=== PATIENT | female | born 1950 | race Caucasian/White ===

== ENCOUNTER 2019-03-28 16:52 | Emergency (ER) | payer OTHER, SELFPAY ==
[~2019-03-28] VITALS: Ht 157.5 cm; Wt 97.5 kg
[2019-03-28 17:47] LABS: BASOPHILS ABSOLUTE AUTO 0.05 K/mm3 (0.00-0.23); BASOPHILS PERCENT AUTO 1 % (0-2); EOSINOPHILS ABSOLUTE AUTO 0.18 K/mm3 (0.00-0.68); EOSINOPHILS PERCENT AUTO 2 % (0-6); Hematocrit 42.6 % (33.0-51.0); Hemoglobin 13.8 g/dL (11.5-16.0); IMMATURE GRAN ABSOLUTE AUTO 0.03 K/mm3 (0.00-0.10); IMMATURE GRAN PERCENT AUTO 0 % (0-1); LYMPHOCYTES ABSOLUTE AUTO 2.65 K/mm3 (0.84-5.20); LYMPHOCYTES PERCENT AUTO 30 % (21-46); MONOCYTES ABSOLUTE AUTO 0.49 K/mm3 (0.16-1.47); MONOCYTES PERCENT AUTO 6 % (4-13); Mean Corpuscular HGB 29.2 pg (26.0-34.0); Mean Corpuscular HGB Conc 32.4 g/dL (31.5-36.5); Mean Corpuscular Volume 90 fL (80-100); Mean Platelet Volume 10.4 fL (9.1-12.4); NEUTROPHILS ABSOLUTE AUTO 5.53 K/mm3 (1.96-9.15); NEUTROPHILS PERCENT AUTO 62 % (41-73); Platelet Count 340 K/mm3 (150-400); RDW Coefficient Variation 12.1 % (11.7-14.2); RDW Standard Deviation 40.5 fL (35.1-46.3); Red Blood Cell Count 4.72 M/mm3 (3.80-5.20); White Blood Cell Count 8.93 K/mm3 (4.00-11.30)
[2019-03-28 18:15] LABS: Alanine Aminotransfer (ALT/SGP 18 U/L (12-78); Albumin, Blood 3.6 g/dL (3.4-5.0); Albumin/Globulin Ratio 0.9 (0.8-1.8); Alk Phos 80 U/L (50-136); Anion Gap 5 mmol/L (6-16); Aspartate Aminotrans (AST/SGOT 25 U/L (12-37); Bilirubin, Total 0.7 mg/dL (0.1-1.0); Blood Urea Nitrogen 16 mg/dL (8-24); Bun/Creatinine Ratio 14.8 (12.0-20.0); CO2, Blood 27 mmol/L (21-32); Calcium, Blood 8.8 mg/dL (8.5-10.1); Chloride, Blood 104 mmol/L (98-108); Creatinine, Blood 1.08 mg/dL (0.40-1.00); Globulin, Blood 3.9 g/dL (2.2-4.0); Glomerular Filtration Rate 54 (60-); Glucose, Blood 158 mg/dL (70-99); Potassium, Blood 3.9 mmol/L (3.5-5.5); Sodium, Blood 136 mmol/L (136-145); Total Protein, Blood 7.5 g/dL (6.4-8.2)
[2019-03-28 18:36] LABS: Troponin I <0.015 ng/mL (0.000-0.040)
== END 2019-03-28 19:07 | disposition home or self-care (01) ==
LOC: ER 16:52
PROVIDERS: Emergency Medicine
DX: J32.9 Chronic sinusitis, unspecified (principal); B97.89 Other viral agents as the cause of diseases classified elsewhere; J40 Bronchitis, not specified as acute or chronic; Z87.01 Personal history of pneumonia (recurrent); Z88.0 Allergy status to penicillin; Z88.8 Allergy status to other drugs, medicaments and biological substances
CPT/HCPCS: 36415; 71046; 80053; 84484; 85025; 93005; 93010; 99284-25

== ENCOUNTER 2019-06-03 20:10 | Emergency (ER) | payer OTHER ==
[~2019-06-03] VITALS: Ht 160 cm; Wt 97.5 kg
[2019-06-03] MEDS ORDERED: ERYT1OIN BOTHEYES (21:05)
== END 2019-06-03 21:17 | disposition home or self-care (01) ==
LOC: ER 20:10
DX: H10.023 Other mucopurulent conjunctivitis, bilateral (principal); I48.91 Unspecified atrial fibrillation; Z88.0 Allergy status to penicillin; Z88.7 Allergy status to serum and vaccine
CPT/HCPCS: 99282

== ENCOUNTER 2020-04-20 05:37 | Day surgery (SDC) | payer OTHER ==
[~2020-04-20 05:37] MED LIST: ASPIR 8181 M1 PO; ERYT1OIN BOTHEYES; Isosorbide Dini30 MG PO; METO25ER PO; NITR.4SL SL
--- NOTE | 2020-04-20 10:11 | NUR ---
10 CC OF AIR REMOVED OUT OF NOW DEFLATED RIGHT TR BAND OVER 10 MIN. RIGHT RADIAL SITE SOFT NON-TENDER WITH NO HEMATOMA, NO PULSATILE BLEEDING. DISCHARGE INSTRUCTIONS REVIEWED ALL QUESTIONS ANNSWERED. PT AMBULATED TO BR TO VOID.
--- NOTE | 2020-04-20 10:24 | NUR ---
NO CHANGES TO DEFLATED RIGHT TR BAND SITE.
--- NOTE | 2020-04-20 10:35 | NUR ---
NO CHANGES TO DEFLATED RIGHT TR BAND SITE.
--- NOTE | 2020-04-20 11:08 | NUR ---
DEFLATED RIGHT TR BAND REMOVED AND POLYMEM PLACED OVER RIGHT RADIAL SITE WITH WRIST BOARD IN PLACE. RIGHT RAIDAL SITE SOFT NON-TENDER WITH NO HEMATOMA, NO PULSATILE BLEEDING. 20 G IV DISCONTINUED FROM LEFT HAND WITH INTACT CANNULA. PT ESCORTED OUT VIA WHEELCHAIR ESCORT.
== END 2020-04-20 11:14 | disposition home or self-care (01) ==
LOC: MHTC 05:37
PROC: B2111ZZ Fluoroscopy of Multiple Coronary Arteries using Low Osmolar Contrast (ICD-10-PCS; principal; 2020-04-20)
PROC: B2151ZZ Fluoroscopy of Left Heart using Low Osmolar Contrast (ICD-10-PCS; principal; 2020-04-20)
PROC: 4A023N7 Measurement of Cardiac Sampling and Pressure, Left Heart, Percutaneous Approach (ICD-10-PCS; principal; 2020-04-20)
DX: I20.8 Other forms of angina pectoris (principal); I45.10 Unspecified right bundle-branch block; I44.30 Unspecified atrioventricular block; I48.0 Paroxysmal atrial fibrillation; I10 Essential (primary) hypertension; I49.5 Sick sinus syndrome; E78.5 Hyperlipidemia, unspecified; E11.9 Type 2 diabetes mellitus without complications; E03.9 Hypothyroidism, unspecified; K21.9 Gastro-esophageal reflux disease without esophagitis; Z95.0 Presence of cardiac pacemaker; Z79.82 Long term (current) use of aspirin; Z79.899 Other long term (current) drug therapy; Z88.0 Allergy status to penicillin; Z88.8 Allergy status to other drugs, medicaments and biological substances
CPT/HCPCS: 76937; 85347; 93458; 99152; C1769; C1894; J1644; J2250; J3010; J7030; J7050; Q9967

== ENCOUNTER 2020-04-23 13:02 | Observation (INO) | payer OTHER ==
[~2020-04-23] VITALS: Ht 160 cm; Wt 93.1 kg
[2020-04-23 13:49] LABS: BASOPHILS ABSOLUTE AUTO 0.05 K/mm3 (0.00-0.23); BASOPHILS PERCENT AUTO 1 % (0-2); EOSINOPHILS ABSOLUTE AUTO 0.11 K/mm3 (0.00-0.68); EOSINOPHILS PERCENT AUTO 1 % (0-6); Hematocrit 43.9 % (33.0-51.0); Hemoglobin 13.7 g/dL (11.5-16.0); IMMATURE GRAN ABSOLUTE AUTO 0.02 K/mm3 (0.00-0.10); IMMATURE GRAN PERCENT AUTO 0 % (0-1); LYMPHOCYTES ABSOLUTE AUTO 2.18 K/mm3 (0.84-5.20); LYMPHOCYTES PERCENT AUTO 25 % (21-46); MONOCYTES ABSOLUTE AUTO 0.65 K/mm3 (0.16-1.47); MONOCYTES PERCENT AUTO 8 % (4-13); Mean Corpuscular HGB 28.4 pg (26.0-34.0); Mean Corpuscular HGB Conc 31.2 g/dL (31.5-36.5); Mean Corpuscular Volume 91 fL (80-100); Mean Platelet Volume 9.9 fL (9.1-12.4); NEUTROPHILS ABSOLUTE AUTO 5.68 K/mm3 (1.96-9.15); NEUTROPHILS PERCENT AUTO 65 % (41-73); Platelet Count 283 K/mm3 (150-400); RDW Coefficient Variation 12.8 % (11.7-14.2); RDW Standard Deviation 42.6 fL (35.1-46.3); Red Blood Cell Count 4.83 M/mm3 (3.80-5.20); White Blood Cell Count 8.69 K/mm3 (4.00-11.30)
[2020-04-23 14:09] LABS: Creatine Kinase MB 1.2 ng/mL (0.0-3.6)
[2020-04-23 14:10] LABS: Alanine Aminotransfer (ALT/SGP 19 U/L (12-78); Albumin, Blood 3.8 g/dL (3.4-5.0); Alk Phos 78 U/L (50-136); Anion Gap 6 mmol/L (6-16); Aspartate Aminotrans (AST/SGOT 15 U/L (12-37); Bilirubin, Total 0.6 mg/dL (0.1-1.0); Blood Urea Nitrogen 17 mg/dL (8-24); Bun/Creatinine Ratio 18.6 (12.0-20.0); CO2, Blood 24 mmol/L (21-32); Calcium, Blood 8.8 mg/dL (8.5-10.1); Chloride, Blood 108 mmol/L (98-108); Creatinine, Blood 0.92 mg/dL (0.40-1.00); Glomerular Filtration Rate >60 (60-); Glucose, Blood 84 mg/dL (70-99); Potassium, Blood 4.2 mmol/L (3.5-5.5); Sodium, Blood 138 mmol/L (136-145); Total Protein, Blood 7.8 g/dL (6.4-8.2); Troponin I <0.015 ng/mL (0.000-0.040)
[2020-04-24 02:25] LABS: BASOPHILS ABSOLUTE AUTO 0.07 K/mm3 (0.00-0.23); BASOPHILS PERCENT AUTO 1 % (0-2); EOSINOPHILS ABSOLUTE AUTO 0.15 K/mm3 (0.00-0.68); EOSINOPHILS PERCENT AUTO 2 % (0-6); Hematocrit 37.7 % (33.0-51.0); IMMATURE GRAN ABSOLUTE AUTO 0.03 K/mm3 (0.00-0.10); IMMATURE GRAN PERCENT AUTO 0 % (0-1); LYMPHOCYTES ABSOLUTE AUTO 2.35 K/mm3 (0.84-5.20); LYMPHOCYTES PERCENT AUTO 32 % (21-46); MONOCYTES ABSOLUTE AUTO 0.52 K/mm3 (0.16-1.47); MONOCYTES PERCENT AUTO 7 % (4-13); Mean Corpuscular HGB 28.9 pg (26.0-34.0); Mean Corpuscular HGB Conc 31.8 g/dL (31.5-36.5); Mean Corpuscular Volume 91 fL (80-100); Mean Platelet Volume 10.3 fL (9.1-12.4); NEUTROPHILS ABSOLUTE AUTO 4.31 K/mm3 (1.96-9.15); NEUTROPHILS PERCENT AUTO 58 % (41-73); Platelet Count 242 K/mm3 (150-400); RDW Coefficient Variation 12.9 % (11.7-14.2); RDW Standard Deviation 43.2 fL (35.1-46.3); Red Blood Cell Count 4.15 M/mm3 (3.80-5.20); White Blood Cell Count 7.43 K/mm3 (4.00-11.30)
[2020-04-24 02:43] LABS: Alanine Aminotransfer (ALT/SGP 17 U/L (12-78); Albumin/Globulin Ratio 0.9 (0.8-1.8); Alk Phos 64 U/L (50-136); Anion Gap 6 mmol/L (6-16); Aspartate Aminotrans (AST/SGOT 12 U/L (12-37); Bilirubin, Total 0.6 mg/dL (0.1-1.0); Blood Urea Nitrogen 17 mg/dL (8-24); Bun/Creatinine Ratio 19.8 (12.0-20.0); CO2, Blood 24 mmol/L (21-32); Calcium, Blood 8.4 mg/dL (8.5-10.1); Chloride, Blood 110 mmol/L (98-108); Creatinine, Blood 0.86 mg/dL (0.40-1.00); Globulin, Blood 3.4 g/dL (2.2-4.0); Glomerular Filtration Rate >60 (60-); Glucose, Blood 135 mg/dL (70-99); Magnesium, Blood 1.9 mg/dL (1.6-2.4); Potassium, Blood 3.9 mmol/L (3.5-5.5); Sodium, Blood 140 mmol/L (136-145); Total Protein, Blood 6.4 g/dL (6.4-8.2); Troponin I <0.015 ng/mL (0.000-0.040)
--- NOTE | 2020-04-24 05:31 | NUR ---
SHIFT SUMMARY PT ARRIVED TO UNIT FROM ED VIA STRETCHER @ 1957. TRANSFERRED FROM STRETCHER TO BEDSIDE 2 PERSON ASSIST WITH WALKER AND GAIT BELT. UNSTEADY GAIT, PT FELT VERY DIZZY. PT REFUSED IV PLACEMENT. SLEPT WELL T/O NIGHT. MEDICATED FOR PAIN X1 PER AUG, USED KPAD WELL, PT STATES THAT HELPED A LOT. 0500 IMAGING CALLED STATING NEED FOR IV FOR CTA, PT STATES SHE IS NOW OK TO HAVE ONE PLACED. ABDULAZIZ COLON IN PT ROOM CURRENTLY ATTEMPTING IV PLACEMENT. PT HAS NO APPARENT NEEDS OR DISTRESS AT THIS TIME, CALL LIGHT AND PERSONAL ITEMS ARE WITHIN REACH. WILL CONTINUE TO MONITOR UNTIL REPORT GIVEN TO DAY RN.
--- NOTE | 2020-04-24 09:09 | NUR ---
ECHOCARDIOGRAM COMPLETED
[2020-04-24] MEDS ORDERED: ACET325 PO (13:13)
[2020-04-24] MEDS ORDERED: Donnatal E16.2 MG/5 PO (13:15)
[2020-04-24] MEDS ORDERED: TUMS500 MG PO (13:16)
[2020-04-24] MEDS ORDERED: FAMO20 PO (13:16)
[2020-04-24] MEDS ORDERED: HYDR10 PO (13:17)
[2020-04-24] MEDS ORDERED: ONDA4ODT MM (13:18)
--- NOTE | 2020-04-24 14:46 | NUR ---
SHIFT SUMMARY PT WOKE FOR SHIFT REPORT. ADMITTED FOR CP AND DIZZINESS. NO C/O CP AT START OF SHIFT. PT WITH HX OF NECK/BRAIN TUMOR SX. CTA OF NECK COMPLETE PRIOR TO SHIFT REPORT. ECHO DONE EARLY THIS AM. PT LATER C/O BURNING MID EPIGASTRIC AFTER BREAKFAST. TUMS GIVEN. PT REPORTED THEM EFFECTIVE. NO C/O CP. PT DID REPORT A HX OF BURNING DOWN LEFT NECK AND CHEST; POSSIBLY R/T NERVE ISSUES FROM TUMOR. PT UP TO CHAIR AT THIS AM AND LATER ABLE TO WORK WITH PT/OT TODAY WELL. DR ORTEGATRATE IN TO SEE PT; DISCUSSED PLAN OF CARE AND REVIEWED TEST RESULTS. D/C ORDERS LATER PLACED. PT TO F/U WITH DOCTOR IN [place] R/T BRAIN TUMOR. PT ALSO TO F/U WITH PCP AND CARDIOLOGY. PT VERBALIZED UNDERSTANDING. MEDS FAXED TO [facility] IN [place], PER PT REQUEST. PT'S SISTER NOTIFIED OF D/C TO COME AND P/U PT. PT ABLE TO DRESS HERSELF, WHILE SITTING IN CHAIR AT . DECLINED ASSIST. PT PLEASANT AND GRATEFUL FOR CARE. PT THEN ASSISTED OUT TO CAR VIA W/C BY DIRECTOR OF PEDIATRIC REHABILITATION.
== END 2020-04-24 13:47 | disposition home or self-care (01) ==
LOC: ER 13:02 → MEDS 13:03
PROVIDERS: Emergency Medicine; ADMIT Family Medicine
DX: R07.9 Chest pain, unspecified (principal); R42 Dizziness and giddiness; R29.6 Repeated falls; I10 Essential (primary) hypertension; I48.91 Unspecified atrial fibrillation; D44.7 Neoplasm of uncertain behavior of aortic body and other paraganglia; K21.9 Gastro-esophageal reflux disease without esophagitis; E66.9 Obesity, unspecified; Z68.35 Body mass index [BMI] 35.0-35.9, adult; Z23 Encounter for immunization; Z95.0 Presence of cardiac pacemaker; Z95.5 Presence of coronary angioplasty implant and graft; Z88.0 Allergy status to penicillin; Z88.8 Allergy status to other drugs, medicaments and biological substances; Z79.82 Long term (current) use of aspirin; Z79.899 Other long term (current) drug therapy; Z87.01 Personal history of pneumonia (recurrent)
CPT/HCPCS: 36415; 70450; 70498; 71045; 80053; 82550; 82553; 83690; 83735; 83880; 84145; 84443; 84484; 85025; 93005; 93010; 93306; 97112; 97161; 97166; 97535; 99285-25; A9270; J1650; Q2038; Q9967

== ENCOUNTER → 2021-01-18 | Outpatient (CLI) | payer OTHER ==
[~2021-01-18] MED LIST changes: +ACET325 PO; +Donnatal E16.2 MG/5 PO; +FAMO20 PO; +HYDR10 PO; +ONDA4ODT MM; +TUMS500 MG PO
== END | disposition home or self-care (01) ==
LOC: LAB SHORT 12:48
DX: N39.0 Urinary tract infection, site not specified (principal)
CPT/HCPCS: 87086

== ENCOUNTER 2021-11-01 06:15 | Day surgery (SDC) | payer MEDICARE ==
[~2021-11-01] VITALS: Ht 157.5 cm; Wt 92.3 kg
[~2021-11-01 06:15] MED LIST changes: +METO10 PO; +Pepcid 20 mg Ta20 MG PO; +TRAM50 PO
[2021-11-01] MEDS ORDERED: IBUP200 PO (06:38)
--- NOTE | 2021-11-01 07:54 | NUR ---
11/01/21 0754 Pk Beck NO ANTIBIOTICS NEEDED
--- NOTE | 2021-11-01 09:05 | NUR ---
Patient up to Ambulate independently. Gait steady. Discharge instructions reviewed with patient. Patient verbalizes understanding. Copy given to patient to take home. Patient States Post-Procedure ride home has been arranged. Discharged via wheelchair to private car for ride home. INCISION WITH DERMABOND IN PLACE C/D/I PT DENIES PAIN AT THIS TIME PT DCD VIA [employer] FRIEND JIMBO FOR RIDE HOME
== END 2021-11-01 23:49 | disposition home or self-care (01) ==
LOC: ORSCMMR 06:15 → ORD 07:30 → ORSCMMR 23:49
PROVIDERS: Surgery
PROC: 0JB60ZZ Excision of Chest Subcutaneous Tissue and Fascia, Open Approach (ICD-10-PCS; principal; 2021-11-01 07:30)
DX: D17.1 Benign lipomatous neoplasm of skin and subcutaneous tissue of trunk (principal); I48.91 Unspecified atrial fibrillation; F41.9 Anxiety disorder, unspecified; E11.9 Type 2 diabetes mellitus without complications; K21.9 Gastro-esophageal reflux disease without esophagitis; I10 Essential (primary) hypertension; E78.5 Hyperlipidemia, unspecified; E03.9 Hypothyroidism, unspecified; E66.9 Obesity, unspecified; Z68.37 Body mass index [BMI] 37.0-37.9, adult; Z79.82 Long term (current) use of aspirin; Z79.899 Other long term (current) drug therapy
CPT/HCPCS: 82947; 88304; J3010; J7120

== ENCOUNTER → 2021-12-28 | Outpatient (CLI) | payer MEDICARE ==
[~2021-12-28] MED LIST changes: +IBUP200 PO
== END | disposition home or self-care (01) ==
LOC: LAB SHORT 12:54 → LAB 12:54
DX: R05.3 Chronic cough (principal)
CPT/HCPCS: 87081

== ENCOUNTER 2022-01-18 11:06 | Emergency (ER) | payer MEDICARE ==
[~2022-01-18] VITALS: Ht 157.5 cm; Wt 88.5 kg
[2022-01-18 12:22] LABS: BASOPHILS ABSOLUTE AUTO 0.06 K/mm3 (0.00-0.23); BASOPHILS PERCENT AUTO 1 % (0-2); EOSINOPHILS ABSOLUTE AUTO 0.13 K/mm3 (0.00-0.68); EOSINOPHILS PERCENT AUTO 1 % (0-6); Hematocrit 40.8 % (33.0-51.0); Hemoglobin 13.5 g/dL (11.5-16.0); IMMATURE GRAN ABSOLUTE AUTO 0.04 K/mm3 (0.00-0.10); IMMATURE GRAN PERCENT AUTO 0 % (0-1); LYMPHOCYTES ABSOLUTE AUTO 1.85 K/mm3 (0.84-5.20); LYMPHOCYTES PERCENT AUTO 15 % (21-46); MONOCYTES ABSOLUTE AUTO 1.11 K/mm3 (0.16-1.47); MONOCYTES PERCENT AUTO 9 % (4-13); Mean Corpuscular HGB 29.7 pg (26.0-34.0); Mean Corpuscular HGB Conc 33.1 g/dL (31.5-36.5); Mean Corpuscular Volume 90 fL (80-100); Mean Platelet Volume 10.2 fL (9.1-12.4); NEUTROPHILS ABSOLUTE AUTO 8.84 K/mm3 (1.96-9.15); NEUTROPHILS PERCENT AUTO 74 % (41-73); Platelet Count 351 K/mm3 (150-400); RDW Coefficient Variation 13.2 % (11.7-14.2); RDW Standard Deviation 43.5 fL (35.1-46.3); Red Blood Cell Count 4.54 M/mm3 (3.80-5.20); White Blood Cell Count 12.03 K/mm3 (4.00-11.30)
[2022-01-18 12:45] LABS: Albumin, Blood 3.4 g/dL (3.4-5.0); Albumin/Globulin Ratio 0.8 (0.8-1.8); Bun/Creatinine Ratio 16.4 (12.0-20.0); Calcium, Blood 8.7 mg/dL (8.5-10.1); Creatinine, Blood 0.92 mg/dL (0.40-1.00); Potassium, Blood 4.2 mmol/L (3.5-5.5); Total Protein, Blood 7.4 g/dL (6.4-8.2)
[2022-01-18 13:08] LABS: Influenza A, PCR NEGATIVE (NEGATIVE); Influenza B, PCR NEGATIVE (NEGATIVE); Resp Syncytial Virus, PCR NEGATIVE (NEGATIVE); SARS-Cov-2 (COVID-19) PCR, MMC NEGATIVE (NEGATIVE)
[2022-01-18] MEDS ORDERED: ALBU90OI INH (14:13)
== END 2022-01-18 14:25 | disposition home or self-care (01) ==
LOC: ER 11:06
PROVIDERS: Emergency Medicine; Physician Assistant
DX: J20.8 Acute bronchitis due to other specified organisms (principal); Z20.822 Contact with and (suspected) exposure to COVID-19; Z79.899 Other long term (current) drug therapy; Z79.82 Long term (current) use of aspirin
CPT/HCPCS: 0241U; 36415; 71045; 80053; 83880; 84484; 85025; 93005; 93010; 94640; 94664

== ENCOUNTER 2023-07-29 09:34 | Emergency (ER) | payer MEDICARE, OTHER ==
[~2023-07-29] VITALS: Ht 157.5 cm; Wt 107.0 kg
[~2023-07-29 09:34] MED LIST changes: +ALBU90OI INH
[2023-07-29] MEDS ORDERED: EUTHYROX50 MC1 PO (09:46)
[2023-07-29] MEDS ORDERED: OXYB5 PO (09:46)
[2023-07-29] MEDS ORDERED: NEURONTIN300 MG PO (09:47)
[2023-07-29] MEDS ORDERED: TRAM50 PO (09:47)
[2023-07-29] MEDS ORDERED: PRAV20 PO (09:47)
[2023-07-29] MEDS ORDERED: OXYC5 PO (10:59)
[2023-07-29 11:40] VITALS: BP 135/76
== END 2023-07-29 11:41 | disposition home or self-care (01) ==
LOC: ER 09:34
DX: M54.16 Radiculopathy, lumbar region (principal); Z88.0 Allergy status to penicillin; Z88.8 Allergy status to other drugs, medicaments and biological substances; Z79.899 Other long term (current) drug therapy; Z79.890 Hormone replacement therapy
CPT/HCPCS: 99283; A9270

== ENCOUNTER → 2024-07-16 | Outpatient (CLI) | payer OTHER ==
[~2024-07-16] MED LIST changes: +ALLEGRA ALLERGY60 MG PO; +CEPH500 PO; +ELIQUIS5 M2 PO; +EUTHYROX50 MC1 PO; +LOPE2C PO; +NEURONTIN300 MG PO; +OXYB5 PO; +OXYC5 PO; +PRAV20 PO
[2024-07-16 11:45] LABS: BASOPHILS ABSOLUTE AUTO 0.04 K/mm3 (0.00-0.23); BASOPHILS PERCENT AUTO 1 % (0-2); EOSINOPHILS ABSOLUTE AUTO 0.07 K/mm3 (0.00-0.68); EOSINOPHILS PERCENT AUTO 1 % (0-6); Hematocrit 41.8 % (33.0-51.0); Hemoglobin 13.4 g/dL (11.5-16.0); IMMATURE GRAN ABSOLUTE AUTO 0.03 K/mm3 (0.00-0.10); IMMATURE GRAN PERCENT AUTO 0 % (0-1); LYMPHOCYTES PERCENT AUTO 25 % (21-46); MONOCYTES ABSOLUTE AUTO 0.52 K/mm3 (0.16-1.47); MONOCYTES PERCENT AUTO 8 % (4-13); Mean Corpuscular HGB 30.2 pg (26.0-34.0); Mean Corpuscular HGB Conc 32.1 g/dL (31.5-36.5); Mean Corpuscular Volume 94 fL (80-100); Mean Platelet Volume 9.8 fL (9.1-12.4); NEUTROPHILS ABSOLUTE AUTO 4.39 K/mm3 (1.96-9.15); NEUTROPHILS PERCENT AUTO 65 % (41-73); Platelet Count 272 K/mm3 (150-400); RDW Coefficient Variation 12.9 % (11.7-14.2); RDW Standard Deviation 44.3 fL (35.1-46.3); Red Blood Cell Count 4.43 M/mm3 (3.80-5.20); White Blood Cell Count 6.75 K/mm3 (4.00-11.30)
[2024-07-16 12:13] LABS: Albumin, Blood 3.6 g/dL (3.4-5.0); Albumin/Globulin Ratio 0.9 (0.8-1.8); Bilirubin, Total 0.6 mg/dL (0.1-1.0); Bun/Creatinine Ratio 10.4 (12.0-20.0); Calcium, Blood 9.1 mg/dL (8.5-10.1); Creatinine, Blood 1.15 mg/dL (0.40-1.00); Potassium, Blood 4.7 mmol/L (3.5-5.5); Total Protein, Blood 7.6 g/dL (6.4-8.2)
== END | disposition home or self-care (01) ==
LOC: LAB 11:40 → LAB SHORT 11:40
PROVIDERS: Emergency Medicine
DX: R07.9 Chest pain, unspecified (principal)
CPT/HCPCS: 80053; 83880; 84484; 85025

== ENCOUNTER 2024-09-16 09:49 | Emergency (ER) | payer OTHER ==
[~2024-09-16] VITALS: Ht 154.9 cm; Wt 98.4 kg
[2024-09-16] MEDS ORDERED: NS 1,000 ML IV SCH (10:25)
[2024-09-16] MEDS ORDERED: Morphine Sulfate 4 MG/1 ML Injection IV ONE (10:25)
[2024-09-16] MEDS ORDERED: Prochlorperazine Edisylate 10 mg Vial IV ONE (10:25)
[2024-09-16 11:48] LABS: BASOPHILS ABSOLUTE AUTO 0.06 K/mm3 (0.00-0.23); BASOPHILS PERCENT AUTO 1 % (0-2); EOSINOPHILS ABSOLUTE AUTO 0.02 K/mm3 (0.00-0.68); EOSINOPHILS PERCENT AUTO 0 % (0-6); Hematocrit 40.3 % (33.0-51.0); IMMATURE GRAN ABSOLUTE AUTO 0.06 K/mm3 (0.00-0.10); IMMATURE GRAN PERCENT AUTO 1 % (0-1); LYMPHOCYTES ABSOLUTE AUTO 1.43 K/mm3 (0.84-5.20); LYMPHOCYTES PERCENT AUTO 12 % (21-46); MONOCYTES ABSOLUTE AUTO 0.96 K/mm3 (0.16-1.47); MONOCYTES PERCENT AUTO 8 % (4-13); Mean Corpuscular HGB Conc 34.7 g/dL (31.5-36.5); Mean Corpuscular Volume 89 fL (80-100); Mean Platelet Volume 10.5 fL (9.1-12.4); NEUTROPHILS ABSOLUTE AUTO 9.18 K/mm3 (1.96-9.15); NEUTROPHILS PERCENT AUTO 78 % (41-73); Platelet Count 339 K/mm3 (150-400); RDW Coefficient Variation 12.6 % (11.7-14.2); RDW Standard Deviation 41.1 fL (35.1-46.3); Red Blood Cell Count 4.52 M/mm3 (3.80-5.20); White Blood Cell Count 11.71 K/mm3 (4.00-11.30)
[2024-09-16 12:15] LABS: Albumin, Blood 3.5 g/dL (3.4-5.0); Albumin/Globulin Ratio 0.8 (0.8-1.8); Bilirubin, Total 1.2 mg/dL (0.1-1.0); Bun/Creatinine Ratio 15.4 (12.0-20.0); Calcium, Blood 9.3 mg/dL (8.5-10.1); Creatinine, Blood 1.04 mg/dL (0.40-1.00); Globulin, Blood 4.6 g/dL (2.2-4.0); Magnesium, Blood 2.1 mg/dL (1.6-2.4); Total Protein, Blood 8.1 g/dL (6.4-8.2)
[2024-09-16] MEDS ORDERED: ONDA4ODT MM (15:04)
[2024-09-16 15:15] VITALS: BP 130/63
== END 2024-09-16 15:34 | disposition home or self-care (01) ==
LOC: ER 09:49
PROVIDERS: Emergency Medicine
DX: A08.4 Viral intestinal infection, unspecified (principal); R55 Syncope and collapse; M25.551 Pain in right hip; W18.30XA Fall on same level, unspecified, initial encounter; I48.91 Unspecified atrial fibrillation; Z88.6 Allergy status to analgesic agent; Z91.011 Allergy to milk products; Z88.0 Allergy status to penicillin; Z88.8 Allergy status to other drugs, medicaments and biological substances; Z79.83 Long term (current) use of bisphosphonates; Z79.890 Hormone replacement therapy; Z79.02 Long term (current) use of antithrombotics/antiplatelets; Z79.891 Long term (current) use of opiate analgesic; Z79.01 Long term (current) use of anticoagulants; Z79.2 Long term (current) use of antibiotics; Z79.1 Long term (current) use of non-steroidal anti-inflammatories (NSAID); Z79.51 Long term (current) use of inhaled steroids
CPT/HCPCS: 71045; 73502; 80053; 83605; 83735; 84484; 85025; 93005; 93010; 96361; 96374; 96375; 99284-25; J0780; J2270; J7030

== ENCOUNTER 2025-03-22 08:28 | Inpatient (IN) | payer OTHER ==
[~2025-03-22] VITALS: Ht 157.5 cm; Wt 82.5 kg
[2025-03-22] MEDS ORDERED: NS 1,000 ML IV SCH ×3 (09:15→16:05)
[2025-03-22] MEDS ORDERED: Ondansetron HCl 2 MG / ML 2ML Vial IV ONE (09:15)
[2025-03-22 09:50] LABS: Source, Urine Clean Catch
[2025-03-22 09:54] LABS: Bilirubin, Urine Neg (Neg); Color, Urine Yellow (P-Yellow); Glucose Qualitative, Urine Neg (Neg); Ketones, Urine Neg (Neg); Leukocyte Esterase, Urine Neg (Neg); Protein, Urine Neg (Neg); Specific Gravity, Urine 1.015 (1.003-1.022); Urobilinogen, Urine NORM (Normal)
[2025-03-22 10:10] LABS: White Blood Cells, Urine 0-2 /hpf (0-5)
[2025-03-22 11:34] LABS: BASOPHILS ABSOLUTE AUTO 0.07 K/mm3 (0.00-0.23); BASOPHILS PERCENT AUTO 0 % (0-2); EOSINOPHILS ABSOLUTE AUTO 0.00 K/mm3 (0.00-0.68); EOSINOPHILS PERCENT AUTO 0 % (0-6); Hematocrit 34.0 % (33.0-51.0); Hemoglobin 11.6 g/dL (11.5-16.0); IMMATURE GRAN ABSOLUTE AUTO 0.27 K/mm3 (0.00-0.10); IMMATURE GRAN PERCENT AUTO 1 % (0-1); LYMPHOCYTES ABSOLUTE AUTO 0.58 K/mm3 (0.84-5.20); LYMPHOCYTES PERCENT AUTO 2 % (21-46); MONOCYTES ABSOLUTE AUTO 1.06 K/mm3 (0.16-1.47); MONOCYTES PERCENT AUTO 5 % (4-13); Mean Corpuscular HGB Conc 34.1 g/dL (31.5-36.5); Mean Corpuscular Volume 88 fL (80-100); NEUTROPHILS ABSOLUTE AUTO 21.79 K/mm3 (1.96-9.15); NEUTROPHILS PERCENT AUTO 92 % (41-73); NRBC ABSOLUTE 0.00 K/mm3 (0.00-0.02); NRBC Auto 0.0 /100 WBC (0.0-0.2); RDW Coefficient Variation 14.4 % (11.7-14.2); RDW Standard Deviation 46.5 fL (35.1-46.3)
[2025-03-22 11:36] LABS: Alanine Aminotransfer (ALT/SGP 13.0 U/L (12-78); Albumin, Blood 2.6 g/dL (3.4-5.0); Albumin/Globulin Ratio 0.6 (0.8-1.8); Anion Gap 8.0 mmol/L (3-11); Aspartate Aminotrans (AST/SGOT 18.0 U/L (12-37); Bilirubin, Total 0.6 mg/dL (0.1-1.0); Blood Urea Nitrogen 10.0 mg/dL (8-24); CO2, Blood 26.0 mmol/L (21-32); Calcium, Blood 8.7 mg/dL (8.5-10.1); Chloride, Blood 104.0 mmol/L (98-108); Creatinine, Blood 0.86 mg/dL (0.40-1.00); Globulin, Blood 4.0 g/dL (2.2-4.0); Glucose, Blood 134.0 mg/dL (70-99); Magnesium, Blood 1.8 mg/dL (1.6-2.4); Phosphorus, Blood 1.9 mg/dL (2.5-4.9); Potassium, Blood 4.0 mmol/L (3.5-5.5); Sodium, Blood 134.0 mmol/L (136-145); Total Protein, Blood 6.6 g/dL (6.4-8.2)
[2025-03-22] MEDS ORDERED: CefTRIAXone Sodium 1,000 MG in NS 100 ML IV ONE (12:55)
[2025-03-22] MEDS ORDERED: Clindamycin 600mg in D5W 50 ML IV ONE (13:00)
[2025-03-22] MEDS ORDERED: Ondansetron HCl 2 MG / ML 2ML Vial IV PRN ×2 (14:15→20:05)
[2025-03-22] MEDS ORDERED: FLU VACC TS2025(65UP)/MF59C/PF 45 MCG/0.5 ML SYRINGE IM SCH (14:15)
[2025-03-22] MEDS ORDERED: OMEP20ER PO (14:24)
[2025-03-22 15:17] VITALS: BP 128/69
[2025-03-22] MEDS ORDERED: ONDA4ODT MM (15:39)
[2025-03-22] MEDS ORDERED: ACET500 PO (15:42)
[2025-03-22] MEDS ORDERED: VITAMIN D32000 UNI1 PO (15:43)
[2025-03-22] MEDS ORDERED: HYDROcodone 5-APAP 325 TAB PO PRN (16:00)
--- NOTE | 2025-03-22 17:07 | NUR ---
ADMISSION SUMMARY PT ARRIVED TO UNIT AT 1530 FROM THE ED. OREINTED TO ROOM, CALL LIGHT WITHIN REACH, PT EDUCATED ON SMOKELESS ENVIRONMENT. PT REPORTS MILD SOB AND MD AWARE. MD AT BEDSIDE TO DISCUSS PLAN OF CARE. PAIN MEDICATE GIVEN. PT AMBULATED TO BATHROOM WITH 1 PERSON ASSIST AND A FWW.
--- NOTE | 2025-03-22 18:10 | NUR ---
SHIFT SUMMARY PT A&O TO SELF AND PLACE. PT IS PLEASANT AND COOPERATIVE WITH CARE. PT DOES GET CONFUSED AT TIMES AND STATES "HE WANTS TO GO TO HIS TRUCK", ALTHOUGH PT IS REDIRECTABLE. PT IS AMBULATING TO BATHROOM WITH SBA AND FWW. PT IN CHAIR AND FRIEND IS VISITING. PT WORKED WITH PHYSICAL THERAPY AND OT TODAY. VITAL SIGNS REVIEWED. CALL LIGHT WITHIN REACH.
[2025-03-22 19:37] VITALS: BP 122/59
[2025-03-22] MEDS ORDERED: Miconazole Nitrate 2% 85 GM PWD TOP SCH (21:00)
[2025-03-22] MEDS ORDERED: Lactobacil 2-S.Thermo-Bifido 1 1 Cap PO SCH (21:00)
[2025-03-23] MEDS ORDERED: Clindamycin 600mg in D5W 50 ML IV SCH
--- NOTE | 2025-03-23 03:32 | NUR ---
SHIFT SUMMARY NO ACUTE EVENTS DURING THIS SHIFT. PT DENIES PAIN AND DISCOMFORT. SBA TO THE RESTROOM. NS INFUSING ORDERED. ON RA, O2 SAT'S>99%. NO COUGH NOTED. PT DENIES N/V. NPO. PLAN FOR SWALLOW EVAL TODAY. BED AT THE LOWEST POSITION, CALL LIGHT W/I REACH. PT IS A/O X4, PLEASANT AND COOPERATIVE WITH CARE. PT IS ABLE TO ADVOCATE HER NEEDS.
[2025-03-23 05:30] VITALS: BP 132/72
[2025-03-23 06:17] LABS: BASOPHILS ABSOLUTE AUTO 0.03 K/mm3 (0.00-0.23); BASOPHILS PERCENT AUTO 0 % (0-2); EOSINOPHILS ABSOLUTE AUTO 0.03 K/mm3 (0.00-0.68); EOSINOPHILS PERCENT AUTO 0 % (0-6); Hematocrit 33.4 % (33.0-51.0); Hemoglobin 10.7 g/dL (11.5-16.0); IMMATURE GRAN ABSOLUTE AUTO 0.08 K/mm3 (0.00-0.10); IMMATURE GRAN PERCENT AUTO 1 % (0-1); LYMPHOCYTES ABSOLUTE AUTO 1.49 K/mm3 (0.84-5.20); LYMPHOCYTES PERCENT AUTO 9 % (21-46); MONOCYTES ABSOLUTE AUTO 0.85 K/mm3 (0.16-1.47); MONOCYTES PERCENT AUTO 5 % (4-13); Mean Corpuscular HGB Conc 32.0 g/dL (31.5-36.5); NEUTROPHILS ABSOLUTE AUTO 13.94 K/mm3 (1.96-9.15); NEUTROPHILS PERCENT AUTO 85 % (41-73); NRBC ABSOLUTE 0.00 K/mm3 (0.00-0.02); NRBC Auto 0.0 /100 WBC (0.0-0.2); Platelet Count 319 K/mm3 (150-400); RDW Coefficient Variation 14.7 % (11.7-14.2); RDW Standard Deviation 50.9 fL (35.1-46.3)
[2025-03-23 06:24] LABS: Mean Corpuscular Volume 93 fL (80-100)
[2025-03-23 06:27] LABS: Alanine Aminotransfer (ALT/SGP 12.0 U/L (12-78); Albumin, Blood 2.3 g/dL (3.4-5.0); Albumin/Globulin Ratio 0.6 (0.8-1.8); Anion Gap 7.0 mmol/L (3-11); Aspartate Aminotrans (AST/SGOT 19.0 U/L (12-37); Bilirubin, Total 0.3 mg/dL (0.1-1.0); Blood Urea Nitrogen 10.0 mg/dL (8-24); CO2, Blood 27.0 mmol/L (21-32); Calcium, Blood 8.1 mg/dL (8.5-10.1); Chloride, Blood 110.0 mmol/L (98-108); Creatinine, Blood 0.76 mg/dL (0.40-1.00); Globulin, Blood 4.0 g/dL (2.2-4.0); Glucose, Blood 80.0 mg/dL (70-99); Potassium, Blood 4.0 mmol/L (3.5-5.5); Sodium, Blood 140.0 mmol/L (136-145); Total Protein, Blood 6.3 g/dL (6.4-8.2)
[2025-03-23 07:33] VITALS: BP 127/69
[2025-03-23] MEDS ORDERED: CefTRIAXone Sodium 1,000 MG in NS 100 ML IV SCH (09:00)
[2025-03-23] MEDS ORDERED: Lidocaine 4% 1 Patch TOP SCH (16:00)
[2025-03-23 16:19] VITALS: BP 126/58
--- NOTE | 2025-03-23 18:53 | NUR ---
SHIFT SUMMARY RECEIVING IV CLINDAMYCIN AND CEFTRIAXONE IV TODAY FOR RLL ASPIRATION PNA. JONO, RN REDRESSES POWERGLIDE IN [place] THAT IS PATENT AND DRAWS WELL. NS CONTINUOUS AT 150/HR. PT AMBULATORY WITH FWW WITH SBA. A&OX4. VISITED TODAY BY HER WIPER BLENDER. RECEIVING ANTIFUNGAL POWDER FOR CANDIDAL RASH UNDER ABDOMEN FOLD AND INGUINAL CREASES. CONTINENT. REQUIRED 1 DOSE ZOFRAN DURING THIS RN'S SHIFT FOR NAUSEA. RECEIVED CONTRAST CT IMAGING TODAY, AND 1 DOSE NORCO FOR UNCONTROLLED PAIN IN R KNEE, R HIP, AND LOW BACK. INITIATED LIDOCAINE PATCH AND HEATING PAD. SPEECH RECOMMENDS PUREE DIET, AND PILLS WHOLE 1 AT TIME IN APPLESAUCE.
[2025-03-23 19:46] VITALS: BP 96/49
[2025-03-24 04:08] VITALS: BP 128/59
[2025-03-24 06:39] LABS: BASOPHILS ABSOLUTE AUTO 0.02 K/mm3 (0.00-0.23); BASOPHILS PERCENT AUTO 0 % (0-2); EOSINOPHILS ABSOLUTE AUTO 0.04 K/mm3 (0.00-0.68); EOSINOPHILS PERCENT AUTO 0 % (0-6); Hematocrit 28.5 % (33.0-51.0); Hemoglobin 9.3 g/dL (11.5-16.0); IMMATURE GRAN ABSOLUTE AUTO 0.05 K/mm3 (0.00-0.10); IMMATURE GRAN PERCENT AUTO 1 % (0-1); LYMPHOCYTES ABSOLUTE AUTO 0.90 K/mm3 (0.84-5.20); LYMPHOCYTES PERCENT AUTO 10 % (21-46); MONOCYTES ABSOLUTE AUTO 0.63 K/mm3 (0.16-1.47); MONOCYTES PERCENT AUTO 7 % (4-13); Mean Corpuscular HGB Conc 32.6 g/dL (31.5-36.5); Mean Corpuscular Volume 91 fL (80-100); NEUTROPHILS ABSOLUTE AUTO 7.31 K/mm3 (1.96-9.15); NEUTROPHILS PERCENT AUTO 82 % (41-73); NRBC ABSOLUTE 0.00 K/mm3 (0.00-0.02); NRBC Auto 0.0 /100 WBC (0.0-0.2); Platelet Count 298 K/mm3 (150-400); RDW Coefficient Variation 14.8 % (11.7-14.2); RDW Standard Deviation 50.0 fL (35.1-46.3)
[2025-03-24 07:00] LABS: Alanine Aminotransfer (ALT/SGP 11.0 U/L (12-78); Albumin, Blood 2.1 g/dL (3.4-5.0); Albumin/Globulin Ratio 0.6 (0.8-1.8); Anion Gap 7.0 mmol/L (3-11); Aspartate Aminotrans (AST/SGOT 13.0 U/L (12-37); Bilirubin, Total 0.3 mg/dL (0.1-1.0); Blood Urea Nitrogen 9.0 mg/dL (8-24); CO2, Blood 26.0 mmol/L (21-32); Calcium, Blood 7.8 mg/dL (8.5-10.1); Chloride, Blood 113.0 mmol/L (98-108); Creatinine, Blood 0.77 mg/dL (0.40-1.00); Globulin, Blood 3.3 g/dL (2.2-4.0); Glucose, Blood 79.0 mg/dL (70-99); Potassium, Blood 3.6 mmol/L (3.5-5.5); Sodium, Blood 142.0 mmol/L (136-145); Total Protein, Blood 5.4 g/dL (6.4-8.2)
[2025-03-24 07:37] VITALS: BP 128/70
[2025-03-24] MEDS ORDERED: NS 250 ML IV PRN (07:45)
[2025-03-24] MEDS ORDERED: Ondansetron 4 MG SoluTab MM PRN (12:10)
[2025-03-24 16:12] VITALS: BP 124/71
--- NOTE | 2025-03-24 16:22 | NUR ---
SHIFT SUMMARY PT AOX4, SBA TO THE BR WITH THE FWW. CALLS AND MAKES HER NEEDS KNOWN. REPOSITIONS SELF IN BED. NO ACUTE COMPLAINTS. POSSIBLE DC TOMORROW. CALL LIGHT WITHIN REACH, BED LOCKED AND IN THE LOWEST POSITION. WILL REPORT TO ONCOMING NURSE.
[2025-03-24 19:30] VITALS: BP 129/68
[2025-03-25 05:25] VITALS: BP 123/71
--- NOTE | 2025-03-25 06:24 | NUR ---
PT RESTED AFTER MELATONIN DOSE. NO ACUTE EVENTS OVERNIGHT. VITALS STABLE. PATIENT UNDER IMPRESSION SHE HAS TO GO TO REHAB BEFORE SHE CAN GO HOME.
[2025-03-25 07:20] VITALS: BP 124/73
[2025-03-25 09:00] LABS: BASOPHILS ABSOLUTE AUTO 0.04 K/mm3 (0.00-0.23); BASOPHILS PERCENT AUTO 1 % (0-2); EOSINOPHILS ABSOLUTE AUTO 0.10 K/mm3 (0.00-0.68); EOSINOPHILS PERCENT AUTO 1 % (0-6); Hematocrit 31.8 % (33.0-51.0); Hemoglobin 10.4 g/dL (11.5-16.0); IMMATURE GRAN ABSOLUTE AUTO 0.03 K/mm3 (0.00-0.10); IMMATURE GRAN PERCENT AUTO 0 % (0-1); LYMPHOCYTES ABSOLUTE AUTO 1.40 K/mm3 (0.84-5.20); LYMPHOCYTES PERCENT AUTO 18 % (21-46); MONOCYTES ABSOLUTE AUTO 0.57 K/mm3 (0.16-1.47); MONOCYTES PERCENT AUTO 7 % (4-13); Mean Corpuscular HGB Conc 32.7 g/dL (31.5-36.5); Mean Corpuscular Volume 90 fL (80-100); NEUTROPHILS ABSOLUTE AUTO 5.79 K/mm3 (1.96-9.15); NEUTROPHILS PERCENT AUTO 73 % (41-73); NRBC ABSOLUTE 0.00 K/mm3 (0.00-0.02); NRBC Auto 0.0 /100 WBC (0.0-0.2); Platelet Count 260 K/mm3 (150-400); RDW Coefficient Variation 14.8 % (11.7-14.2); RDW Standard Deviation 49.1 fL (35.1-46.3)
[2025-03-25 09:47] LABS: Alanine Aminotransfer (ALT/SGP 10.0 U/L (12-78); Albumin, Blood 1.7 g/dL (3.4-5.0); Albumin/Globulin Ratio 0.6 (0.8-1.8); Anion Gap 9.0 mmol/L (3-11); Aspartate Aminotrans (AST/SGOT 25.0 U/L (12-37); Bilirubin, Total 0.3 mg/dL (0.1-1.0); Blood Urea Nitrogen 5.0 mg/dL (8-24); CO2, Blood 20.0 mmol/L (21-32); Calcium, Blood 6.5 mg/dL (8.5-10.1); Chloride, Blood 120.0 mmol/L (98-108); Creatinine, Blood 0.59 mg/dL (0.40-1.00); Globulin, Blood 3.0 g/dL (2.2-4.0); Glucose, Blood 69.0 mg/dL (70-99); Potassium, Blood 3.2 mmol/L (3.5-5.5); Sodium, Blood 146.0 mmol/L (136-145); Total Protein, Blood 4.7 g/dL (6.4-8.2)
[2025-03-25 15:32] VITALS: BP 125/67
--- NOTE | 2025-03-25 17:54 | NUR ---
SHIFT SUMMARY PATIENT A&OX4, UP AND WALKING STRONG TO BATHROOM WITH STAND BY ASSIST AND FWW. CONTINENT. ON RA, NO TELE. PT CONSULTED AND PATIENT AGREES TO DISCHARGE TO [facility], HOWEVER, CHALLENGED DISCHARGE TO STAY UNTIL SHE CAN INSURANCE APPROVAL FOR THE STAY AT THE LOCAL SNF. SHE IS CURRENTLY UP IN CHAIR AWAITING DINNER. CALL LIGHT IS WITHIN REACH, SHE HAS BEEN CALLING APPROPRIATELY.
[2025-03-25 19:52] VITALS: BP 133/62
[2025-03-26 05:05] VITALS: BP 140/56
[2025-03-26 06:36] LABS: BASOPHILS ABSOLUTE AUTO 0.03 K/mm3 (0.00-0.23); BASOPHILS PERCENT AUTO 0 % (0-2); EOSINOPHILS ABSOLUTE AUTO 0.12 K/mm3 (0.00-0.68); EOSINOPHILS PERCENT AUTO 2 % (0-6); Hematocrit 33.0 % (33.0-51.0); Hemoglobin 10.9 g/dL (11.5-16.0); IMMATURE GRAN ABSOLUTE AUTO 0.03 K/mm3 (0.00-0.10); IMMATURE GRAN PERCENT AUTO 0 % (0-1); LYMPHOCYTES ABSOLUTE AUTO 1.37 K/mm3 (0.84-5.20); LYMPHOCYTES PERCENT AUTO 18 % (21-46); MONOCYTES ABSOLUTE AUTO 0.59 K/mm3 (0.16-1.47); MONOCYTES PERCENT AUTO 8 % (4-13); Mean Corpuscular HGB Conc 33.0 g/dL (31.5-36.5); Mean Corpuscular Volume 91 fL (80-100); NEUTROPHILS ABSOLUTE AUTO 5.50 K/mm3 (1.96-9.15); NEUTROPHILS PERCENT AUTO 72 % (41-73); NRBC ABSOLUTE 0.00 K/mm3 (0.00-0.02); NRBC Auto 0.0 /100 WBC (0.0-0.2); Platelet Count 329 K/mm3 (150-400); RDW Coefficient Variation 14.6 % (11.7-14.2); RDW Standard Deviation 49.0 fL (35.1-46.3)
--- NOTE | 2025-03-26 06:46 | NUR ---
SHIFT SUMMARY A/Ox4, VSS ON RA. PT REFUSED CPAP OVERNIGHT, CONTINUOUS PULSE OX IN PLACE. PT UP TO RESTROOM WITH SBA AND FWW, STEADY GAIT NOTED. NO ACUTE CHANGES OVERNIGHT. SAFETY PRECAUTIONS IN PLACE.
[2025-03-26 07:04] LABS: Alanine Aminotransfer (ALT/SGP 14.0 U/L (12-78); Albumin, Blood 2.4 g/dL (3.4-5.0); Albumin/Globulin Ratio 0.6 (0.8-1.8); Anion Gap 8.0 mmol/L (3-11); Aspartate Aminotrans (AST/SGOT 18.0 U/L (12-37); Bilirubin, Total 0.3 mg/dL (0.1-1.0); Blood Urea Nitrogen 6.0 mg/dL (8-24); CO2, Blood 26.0 mmol/L (21-32); Calcium, Blood 8.8 mg/dL (8.5-10.1); Chloride, Blood 111.0 mmol/L (98-108); Creatinine, Blood 0.68 mg/dL (0.40-1.00); Globulin, Blood 4.1 g/dL (2.2-4.0); Glucose, Blood 98.0 mg/dL (70-99); Potassium, Blood 3.7 mmol/L (3.5-5.5); Sodium, Blood 141.0 mmol/L (136-145); Total Protein, Blood 6.5 g/dL (6.4-8.2)
[2025-03-26 07:25] VITALS: BP 132/63
[2025-03-26 15:40] VITALS: BP 120/67
--- NOTE | 2025-03-26 18:13 | NUR ---
PT PLEASANT AND COOP TODAY. DID WORK WITH PHYSICAL THERAPY TODAY. NO C/O PAIN FOR ME. LUNGS STILL CRACKLES IN LEFT BASE. VSS. FAMILY/FRIENDS IN TO VISIT TODAY. NO NEW CONCERNS NOTED. BED IN LOW POSITION, CALL LITE IN REACH, CALLS APPROP
[2025-03-26 20:57] VITALS: BP 114/63
[2025-03-27 04:25] VITALS: BP 150/68
[2025-03-27 06:07] LABS: BASOPHILS ABSOLUTE AUTO 0.04 K/mm3 (0.00-0.23); BASOPHILS PERCENT AUTO 1 % (0-2); EOSINOPHILS ABSOLUTE AUTO 0.15 K/mm3 (0.00-0.68); EOSINOPHILS PERCENT AUTO 2 % (0-6); Hematocrit 32.2 % (33.0-51.0); Hemoglobin 10.5 g/dL (11.5-16.0); IMMATURE GRAN ABSOLUTE AUTO 0.03 K/mm3 (0.00-0.10); IMMATURE GRAN PERCENT AUTO 1 % (0-1); LYMPHOCYTES ABSOLUTE AUTO 1.42 K/mm3 (0.84-5.20); LYMPHOCYTES PERCENT AUTO 22 % (21-46); MONOCYTES ABSOLUTE AUTO 0.62 K/mm3 (0.16-1.47); MONOCYTES PERCENT AUTO 10 % (4-13); Mean Corpuscular HGB Conc 32.6 g/dL (31.5-36.5); Mean Corpuscular Volume 90 fL (80-100); NEUTROPHILS ABSOLUTE AUTO 4.23 K/mm3 (1.96-9.15); NEUTROPHILS PERCENT AUTO 65 % (41-73); NRBC ABSOLUTE 0.00 K/mm3 (0.00-0.02); NRBC Auto 0.0 /100 WBC (0.0-0.2); Platelet Count 320 K/mm3 (150-400); RDW Coefficient Variation 14.6 % (11.7-14.2); RDW Standard Deviation 47.8 fL (35.1-46.3)
[2025-03-27 06:44] LABS: Alanine Aminotransfer (ALT/SGP 13.0 U/L (12-78); Albumin, Blood 2.3 g/dL (3.4-5.0); Albumin/Globulin Ratio 0.6 (0.8-1.8); Anion Gap 7.0 mmol/L (3-11); Aspartate Aminotrans (AST/SGOT 19.0 U/L (12-37); Bilirubin, Total 0.3 mg/dL (0.1-1.0); Blood Urea Nitrogen 6.0 mg/dL (8-24); CO2, Blood 27.0 mmol/L (21-32); Calcium, Blood 8.7 mg/dL (8.5-10.1); Chloride, Blood 109.0 mmol/L (98-108); Creatinine, Blood 0.69 mg/dL (0.40-1.00); Globulin, Blood 4.0 g/dL (2.2-4.0); Glucose, Blood 90.0 mg/dL (70-99); Potassium, Blood 3.5 mmol/L (3.5-5.5); Sodium, Blood 139.0 mmol/L (136-145); Total Protein, Blood 6.3 g/dL (6.4-8.2)
--- NOTE | 2025-03-27 07:10 | NUR ---
SHIFT SUMMARY A/Ox4, VSS ON RA. CPAP REFUSED THIS SHIFT. CONTINUOUS PULSE OX IN PLACE. NO DESATs NOTED. PT UP TO RESTROOM WITH SBA AND FWW. PT DENIES PAIN, SOB, NAUSEA, OTHER COMPLAINTS.
[2025-03-27 07:27] VITALS: BP 130/70
[2025-03-27 15:15] VITALS: BP 128/79
--- NOTE | 2025-03-27 17:55 | NUR ---
pt pleasant today. family/friends in to visit today. continues to be crackles in low left base. pt up ambulating 1 to sba asst with fww. to bathroom and to chair. no c/o pain. vss. no new concerns noted. pending placement chari;roval with insurance. expect friday. bed in low position, call lite in reach, calls approp
[2025-03-27 20:52] VITALS: BP 135/65
[2025-03-28 04:57] VITALS: BP 124/64
[2025-03-28 06:15] LABS: BASOPHILS ABSOLUTE AUTO 0.05 K/mm3 (0.00-0.23); BASOPHILS PERCENT AUTO 1 % (0-2); EOSINOPHILS ABSOLUTE AUTO 0.16 K/mm3 (0.00-0.68); EOSINOPHILS PERCENT AUTO 2 % (0-6); Hematocrit 35.3 % (33.0-51.0); Hemoglobin 11.6 g/dL (11.5-16.0); IMMATURE GRAN ABSOLUTE AUTO 0.05 K/mm3 (0.00-0.10); IMMATURE GRAN PERCENT AUTO 1 % (0-1); LYMPHOCYTES ABSOLUTE AUTO 1.68 K/mm3 (0.84-5.20); LYMPHOCYTES PERCENT AUTO 23 % (21-46); MONOCYTES ABSOLUTE AUTO 0.72 K/mm3 (0.16-1.47); MONOCYTES PERCENT AUTO 10 % (4-13); Mean Corpuscular HGB Conc 32.9 g/dL (31.5-36.5); Mean Corpuscular Volume 89 fL (80-100); NEUTROPHILS ABSOLUTE AUTO 4.56 K/mm3 (1.96-9.15); NEUTROPHILS PERCENT AUTO 63 % (41-73); NRBC ABSOLUTE 0.00 K/mm3 (0.00-0.02); NRBC Auto 0.0 /100 WBC (0.0-0.2); Platelet Count 359 K/mm3 (150-400); RDW Coefficient Variation 14.7 % (11.7-14.2); RDW Standard Deviation 47.8 fL (35.1-46.3)
--- NOTE | 2025-03-28 06:32 | NUR ---
SHIFT SUMMARY A/Ox4, PLEASANT. VSS ON RA. CPAP REFUSED OVERNIGHT, CONTINUOUS PULSE OX IN PLACE. NO ACUTE CHANGES. UP TO RESTROOM WITH SBA/FWW. CALL LIGHT IN REACH.
[2025-03-28 06:37] LABS: Alanine Aminotransfer (ALT/SGP 15.0 U/L (12-78); Albumin, Blood 2.6 g/dL (3.4-5.0); Albumin/Globulin Ratio 0.6 (0.8-1.8); Anion Gap 8.0 mmol/L (3-11); Aspartate Aminotrans (AST/SGOT 21.0 U/L (12-37); Bilirubin, Total 0.3 mg/dL (0.1-1.0); Blood Urea Nitrogen 6.0 mg/dL (8-24); CO2, Blood 27.0 mmol/L (21-32); Calcium, Blood 9.1 mg/dL (8.5-10.1); Chloride, Blood 108.0 mmol/L (98-108); Creatinine, Blood 0.79 mg/dL (0.40-1.00); Globulin, Blood 4.2 g/dL (2.2-4.0); Glucose, Blood 90.0 mg/dL (70-99); Potassium, Blood 3.8 mmol/L (3.5-5.5); Sodium, Blood 139.0 mmol/L (136-145); Total Protein, Blood 6.8 g/dL (6.4-8.2)
[2025-03-28 07:21] VITALS: BP 146/82
--- NOTE | 2025-03-28 13:52 | NUR ---
Pt. is awake and sitting up on a chair. Pt. is playing solitare on her tablet when she welcomed my visit. Pt. verbalized concerns about potential discharge plans and verbalized that in the past home health would not come to her home. Listened with emapthy and a calming presence as I also attempted to normalize the Pt. experience. Pt. displayed evidence of understanding. Prayed with Pt. Pt. verbalized gratitude for the spiritual care visit and welcomed this skills trainer to return.
[2025-03-28 19:22] VITALS: BP 151/79
[2025-03-29 02:37] VITALS: BP 97/82
[2025-03-29 06:24] LABS: BASOPHILS ABSOLUTE AUTO 0.05 K/mm3 (0.00-0.23); BASOPHILS PERCENT AUTO 1 % (0-2); EOSINOPHILS ABSOLUTE AUTO 0.16 K/mm3 (0.00-0.68); EOSINOPHILS PERCENT AUTO 2 % (0-6); Hematocrit 33.8 % (33.0-51.0); Hemoglobin 11.5 g/dL (11.5-16.0); IMMATURE GRAN ABSOLUTE AUTO 0.04 K/mm3 (0.00-0.10); IMMATURE GRAN PERCENT AUTO 1 % (0-1); LYMPHOCYTES ABSOLUTE AUTO 1.41 K/mm3 (0.84-5.20); LYMPHOCYTES PERCENT AUTO 20 % (21-46); MONOCYTES ABSOLUTE AUTO 0.67 K/mm3 (0.16-1.47); MONOCYTES PERCENT AUTO 9 % (4-13); Mean Corpuscular HGB Conc 34.0 g/dL (31.5-36.5); Mean Corpuscular Volume 90 fL (80-100); NEUTROPHILS ABSOLUTE AUTO 4.87 K/mm3 (1.96-9.15); NEUTROPHILS PERCENT AUTO 68 % (41-73); NRBC ABSOLUTE 0.00 K/mm3 (0.00-0.02); NRBC Auto 0.0 /100 WBC (0.0-0.2); Platelet Count 331 K/mm3 (150-400); RDW Coefficient Variation 14.8 % (11.7-14.2); RDW Standard Deviation 48.2 fL (35.1-46.3)
[2025-03-29 06:54] LABS: Alanine Aminotransfer (ALT/SGP 15.0 U/L (12-78); Albumin, Blood 2.6 g/dL (3.4-5.0); Albumin/Globulin Ratio 0.6 (0.8-1.8); Anion Gap 6.0 mmol/L (3-11); Aspartate Aminotrans (AST/SGOT 19.0 U/L (12-37); Bilirubin, Total 0.4 mg/dL (0.1-1.0); Blood Urea Nitrogen 6.0 mg/dL (8-24); CO2, Blood 27.0 mmol/L (21-32); Calcium, Blood 8.9 mg/dL (8.5-10.1); Chloride, Blood 109.0 mmol/L (98-108); Creatinine, Blood 0.73 mg/dL (0.40-1.00); Globulin, Blood 4.2 g/dL (2.2-4.0); Glucose, Blood 100.0 mg/dL (70-99); Potassium, Blood 3.8 mmol/L (3.5-5.5); Sodium, Blood 138.0 mmol/L (136-145); Total Protein, Blood 6.8 g/dL (6.4-8.2)
[2025-03-29 07:07] VITALS: BP 125/66
--- NOTE | 2025-03-29 07:11 | NUR ---
SHIFT SUMMARY; PT A/OX4, PLEASANT, AND COOPERATIVE WITH CARE, USING CALL LIGHT APPROPRIATELY. CONTINUOUS PULSE OX PLACED ON PT READING AT 94-95% AT RA. COARSE CRACKLES HEARD WITHIN THE RML AND RLL. PT MEDICATED PER EMAR WITH PILLS TAKEN ONE AT A TIME WITH APPLESAUCE, SWALLOWING OKAY. PT AMBULATES TO RESTROOM TWICE DURING THE SHIFT WITH FWW AND RN STAND BY ASSIST. VSS. BED IN LOW POSITION. CALL LIGHT WITHIN REACH.
[2025-03-29 15:34] VITALS: BP 110/68
--- NOTE | 2025-03-29 17:06 | NUR ---
SHIFT SUMMARY PT A&OX4, VSS, AMB W/ ASSIST TO THE CHAIR/BSC, TOLERATING PO, VOIDING, AND DENIED PAIN. PT C/O NAUSEA X1 THAT WAS MEDICATED PER EMAR. PT WORKED W/ PHYSICAL THERAPY THIS SHIFT, SEE THERAPY NOTE. PENDING ATRIO AUTH FOR SNF. NO OTHER ACUTE CHANGES. CALL LIGHT WITHIN REACH AND PT ABLE TO MAKE NEEDS KNOWN.
[2025-03-29 19:19] VITALS: BP 105/59
[2025-03-30 04:22] VITALS: BP 117/60
--- NOTE | 2025-03-30 04:57 | NUR ---
SHIFT SUMMARY PATIENT ALERT AND ORIENTED X 4. MAKES NEEDS KNOWN. PATIENT PLEASANT AND COOPERATIVE DURING CARE. NO ACUTE CHANGE DURING THIS SHIFT. VITAL SIGNS STABLE. PATIENT SELF REPOSITIONED THROUGHOUT THE SHIFT. PATIENT SLEPT MOST OF THE NIGHT NO SIGNS OF DISTRESS, RESPIRATION EVEN AND UNLABORED. ADMINISTERED MEDICATIONS PER EMAR. BED LOCKED AND IN LOWEST POSITION. CALL LIGHT WITHIN REACH.
[2025-03-30 07:23] VITALS: BP 105/58
[2025-03-30 15:58] VITALS: BP 101/62
--- NOTE | 2025-03-30 18:00 | NUR ---
SHIFT SUMMARY PT A&OX4, VSS, AMBULATES W FWW AND SBA, TOLERATING PO INTAKE, VOIDING, PT VERBALIZED GENERALIZED PAIN, APPLIED A TOPICAL LIDOCAINE PATCH. PT WORKED WITH OT THIS SHIFT. AWAITING DISCHARGE ORDERS. NO ACUTE CHANGES THIS SHIFT. CALL LIGHT WITHIN REACH AND ABLE TO MAKE NEEDS KNOWN.
[2025-03-30 19:13] VITALS: BP 107/71
[2025-03-31 05:01] VITALS: BP 109/91
[2025-03-31 07:14] VITALS: BP 106/76
--- NOTE | 2025-03-31 07:45 | NUR ---
SHIFT SUMMARY; SLEPT IN LONG INTERALS, CALLED APPROPRIATLY TO USE BR. UP TO BR WITH MILD SOB WITH EXERTION. NO TELE.
[2025-03-31 16:02] VITALS: BP 127/77
--- NOTE | 2025-03-31 18:16 | NUR ---
SHIFT SUMMARY PT IS A&0X4, PLEASANT AND COOPERATIVE WITH CARE. VSS, TOLERATING PO INTAKE, AMBULATING WITH FWW AND GB, AND VOIDING APPROPRIATELY. PT UP IN CHAIR T/O SHIFT. AWAITING DISCHARGE ORDERS. PG DRESSING CHANGED THIS SHIFT. CALL LIGHT WITHIN REACH OF PT, PT CALL APPROPRAITELY.
[2025-03-31 19:08] VITALS: BP 132/68
--- NOTE | 2025-03-31 20:31 | NUR ---
ASSUMPTION OF CARE: THIS RN ASSUMED CARE OF PATIENT. AWAKE DURING SHIFT CHANGE REPORT. SITTING UP IN CHAIR, TALKING ON THE PHONE. BREATHING EVEN AND UNLABORED c ROOM AIR. BED IN LOWEST POSITION. CALL LIGHT WITHIN REACH. ACUTE NEEDS MET.
[2025-04-01 05:37] VITALS: BP 106/53
--- NOTE | 2025-04-01 06:11 | NUR ---
END OF SHIFT SUMMARY: A&Ox4. PLEASANT AND COOPERATIVE WITH CARE. CALLS APPROPRIATELY AND IS ABLE TO ADVOCATE NEEDS EFFECTIVELY. VSS. BREATHING EVEN AND UNLABORED c RA. MAINTAINING SPO2 >92% c RA PER CONTINUOUS PULSE OX. CPAP NOT WORN. CONTINENT OF BOWEL AND BLADDER. TOLERATING DIET. AMBULATES SBA c FWW. MEDS WHOLE c APPLESAUCE. NO ACUTE OVERNIGHT EVENTS. LABS DRAWN THIS MORNING. AWAITING RESULTS. BED IN LOWEST POSITION, CALL LIGHT WITHIN REACH, ALL NEEDS MET. REPORT TO ONCOMING NURSE.
[2025-04-01 07:24] VITALS: BP 105/59
[2025-04-01] MEDS ORDERED: ASPERFLEX1 EACH TOP (11:22)
--- NOTE | 2025-04-01 11:44 | NUR ---
DISCHARGE NOTE PT TRANSPORTED TO [facility] VIA WHEELCHAIR TRANSPORT. PT A&OX4, TOLERATING PO INTAKE, VOIDING, VSS, AND AMBULATING WITH FWW. PT RECEIVED VERBAL AND WRITTEN DISCHARGE INSTRUCTIONS. PT VERABLIZED AN UNDERSTANDING. PT LEFT WITH ALL PERSONAL BELONGINGS. HARD SCRIPT SENT WITH TRANSPORT, PG REMOVED, AND PULSE OX REMOVED. REPORT TO R ATTEMPTED X3, LEFT CONTACT INFORMATION.
== END 2025-04-01 11:46 | DRG 179 ==
LOC: ER 08:28 → MEDS 14:10 → ENPENDDIS 04-01 11:11 → MEDS 04-01 11:46
PROVIDERS: Family Medicine; Physician Assistant; ADMIT Family Medicine
PROC: 3E03329 Introduction of Other Anti-infective into Peripheral Vein, Percutaneous Approach (ICD-10-PCS; principal; 2025-03-22)
PROC: 5A09357 Assistance with Respiratory Ventilation, Less than 24 Consecutive Hours, Continuous Positive Airway Pressure (ICD-10-PCS; 2025-03-22)
DX: J69.0 Pneumonitis due to inhalation of food and vomit (principal); E11.42 Type 2 diabetes mellitus with diabetic polyneuropathy; I10 Essential (primary) hypertension; E03.9 Hypothyroidism, unspecified; I48.0 Paroxysmal atrial fibrillation; I25.10 Atherosclerotic heart disease of native coronary artery without angina pectoris; R29.6 Repeated falls; R11.2 Nausea with vomiting, unspecified; G47.33 Obstructive sleep apnea (adult) (pediatric); Z91.81 History of falling; Z88.6 Allergy status to analgesic agent; Z88.0 Allergy status to penicillin; Z88.5 Allergy status to narcotic agent; Z79.890 Hormone replacement therapy; Z79.01 Long term (current) use of anticoagulants; Z87.01 Personal history of pneumonia (recurrent); Z95.0 Presence of cardiac pacemaker; Z92.3 Personal history of irradiation; Z79.891 Long term (current) use of opiate analgesic; Z85.89 Personal history of malignant neoplasm of other organs and systems
CPT/HCPCS: 36415; 70450; 70470; 71260; 72125; 73562-RT; 74176; 74177; 80053; 81001; 83605; 83690; 83735; 84100; 85025; 87040; 92526; 92610; 93005; 93010; 94660; 94760; 94762; 96361; 96374; 97110; 97116; 97162; 97165; 97530; 97535; 99285-25; A9270; J0696; J2405; J7030; J7050; P9612; Q9967

== ENCOUNTER → 2025-05-11 | Outpatient (CLI) | payer OTHER | LOC: LAB 18:55 | DX: R10.31 Right lower quadrant pain (principal) ==